=== PATIENT | male | born 1965 | race Caucasian/White ===

== ENCOUNTER 2021-10-16 11:03 | Inpatient (IN) ==
[~2021-10-16 11:03] MED LIST: Buffered Lidocaine 1% SYRIN 1 ml INTRADERM ONE; Lactated Ringers 1000 ml BAG 1,000 ML IV SCH
[2021-10-16] MEDS ORDERED: Buffered Lidocaine 1% SYRIN 1 ml INTRADERM ONE (11:23)
[2021-10-16] MEDS ORDERED: ceFAZolin 2 GM PREMIX 2 GM/50 ML BAG ONE (11:23)
[2021-10-16] MEDS ORDERED: fentaNYL 100 mcg/2 ml 50 MCG/ML VIAL ONE ×2 (13:49→17:45)
[2021-10-16] MEDS ORDERED: Phenylephrine IV 10 MG/ML 1 ml VIAL ONE (13:50)
[2021-10-16] MEDS ORDERED: Midazolam 2 mg/2 ml VIAL 1 mg/ml 2 ml VIAL (2 mg) ONE (13:50)
[2021-10-16] MEDS ORDERED: Propofol 10 mg/ml 100 ML BTL 100 ML ONE (13:59)
[2021-10-16] MEDS ORDERED: Rocuronium 50 mg VIAL 10 mg/ml 5 ml VIAL (50 mg) ONE (14:16)
[2021-10-16] MEDS ORDERED: Lidocaine 2% PF 5 ML VIAL ONE (14:31)
[2021-10-16] MEDS ORDERED: HYDROmorphone 0.5 MG/0.5 ML SYRINGE ONE ×3 (14:46→16:25)
[2021-10-16] MEDS ORDERED: fentaNYL 250 mcg/5 ml 50 MCG/ML 5 ml VIAL (250 MCG) ONE (15:29)
[2021-10-16] MEDS ORDERED: Dexamethasone IV 4 MG/ML VIAL 1 ml VIAL ONE (15:30)
[2021-10-16] MEDS ORDERED: Ondansetron 4 mg VIAL 2 MG/ML 2 ml VIAL ONE (15:30)
[2021-10-16] MEDS ORDERED: Propofol 10 MG/ML 20 ML BTL ONE (15:32)
[2021-10-16] MEDS ORDERED: Lactulose 30 ml UDC PO PRN (15:33)
[2021-10-16] MEDS ORDERED: diPHENhydraMINE IV 50 MG/ML 1 ml VIAL (BENADRYL) IV PRN (15:33)
[2021-10-16] MEDS ORDERED: Magnesium Hydroxide LIQ 30 ML UDC PO PRN (15:33)
[2021-10-16] MEDS ORDERED: Ondansetron ODT 4 mg TAB 4 MG TAB PO PRN (15:33)
[2021-10-16] MEDS ORDERED: Ondansetron 4 mg VIAL 2 MG/ML 2 ml VIAL IV PRN ×2 (15:33→17:31)
[2021-10-16] MEDS ORDERED: diPHENhydraMINE 25 mg TAB PO PRN (15:33)
[2021-10-16] MEDS ORDERED: HYDROmorphone 1 MG/1 ML SYRINGE IV SLOW PU PRN (15:40)
[2021-10-16] MEDS ORDERED: ROPIVACAINE 5 MG/ML 30 ML BTL (0.5%) ONE (15:51)
[2021-10-16] MEDS ORDERED: ceFAZolin 1 GM ADVAN 1 GM in NS 0.9% 50 ML 50 ML IVPB SCH (16:00)
[2021-10-16] MEDS ORDERED: Naloxone 0.4 mg VIAL 0.4 mg/ml 1 ml VIAL IV PRN (17:31)
[2021-10-16] MEDS ORDERED: DiMENhydriNATE IV 50 mg/ml 1 ml VIAL IV PUSH PRN (17:31)
[2021-10-16] MEDS: fentaNYL 100 mcg/2 ml 50 MCG/ML VIAL IV PRN ×4 (17:47→18:24)
[2021-10-16] MEDS ORDERED: HYDROmorphone 1 MG/1 ML SYRINGE ONE (18:41)
[2021-10-16] MEDS: HYDROmorphone 1 MG/1 ML SYRINGE IV PRN ×3 (18:42→18:52)
[2021-10-16] MEDS ORDERED: Labetalol IV 5 MG/ML 20 ml VIAL ONE (19:26)
[2021-10-16] MEDS ORDERED: Labetalol IV 5 MG/ML 20 ml VIAL IV PUSH ONE (19:28)
[2021-10-16] MEDS: Lactated Ringers 1000 ml BAG 1,000 ML IV SCH (20:50)
[2021-10-16] MEDS: oxyCODONE SR 15 mg TAB PO SCH (22:33)
[2021-10-16] MEDS: Magnesium Hydroxide LIQ 30 ML UDC PO SCH (22:35)
[2021-10-16] MEDS: ceFAZolin 1 GM ADVAN 1 GM in NS 0.9% 50 ML 50 ML IVPB SCH (23:29)
[2021-10-17 05:23] LABS: Hematocrit 35 % (42-52); Hemoglobin 12.2 g/dL (14.0-18.0); Mean Platelet Volume 6.7 fL (7.4-10.4); Platelet Count 309 10^3/uL (150-450)
[2021-10-17 05:45] LABS: Calcium 8.9 mg/dL (8.6-10.3); Potassium 4.2 mmol/L (3.5-5.0); eGFR CKD-EPI 96.3 (>60)
[2021-10-17] MEDS: Lactated Ringers 1000 ml BAG 1,000 ML IV SCH (06:09)
[2021-10-17] MEDS: ceFAZolin 1 GM ADVAN 1 GM in NS 0.9% 50 ML 50 ML IVPB SCH ×2 (07:18→15:19)
[2021-10-17] MEDS: Magnesium Hydroxide LIQ 30 ML UDC PO SCH ×2 (09:59→21:02)
[2021-10-17] MEDS: Vitamin THERAPEUTIC TAB PO SCH (10:01)
[2021-10-17] MEDS: oxyCODONE SR 15 mg TAB PO SCH ×2 (10:01→21:03)
[2021-10-17] MEDS: DULoxetine DR 60 mg CAP PO SCH (10:02)
[2021-10-18 06:30] LABS: Hematocrit 33 % (42-52); Hemoglobin 11.5 g/dL (14.0-18.0); Mean Platelet Volume 6.9 fL (7.4-10.4); Platelet Count 265 10^3/uL (150-450)
[2021-10-18 07:54] VITALS: BP 107/63
[2021-10-18] MEDS: oxyCODONE SR 15 mg TAB PO SCH (08:52)
[2021-10-18] MEDS: Vitamin THERAPEUTIC TAB PO SCH (08:53)
[2021-10-18] MEDS: DULoxetine DR 60 mg CAP PO SCH (08:55)
[2021-10-18] MEDS: Magnesium Hydroxide LIQ 30 ML UDC PO SCH (08:56)
[2021-10-18] MEDS ORDERED: Enoxaparin 30 MG/0.3 ML SYR SUBCUT SCH (09:00)
== END 2021-10-18 12:00 | disposition home or self-care (01) | DRG 470 ==
LOC: AA 11:03 → SSU 20:02
PROVIDERS: ADMIT Orthopaedic Surgery Adult Reconstructive Orthopaedic Surgery; ATTEND Orthopaedic Surgery Adult Reconstructive Orthopaedic Surgery